=== PATIENT | female | born 1995 | race Caucasian/White ===

== ENCOUNTER → 2021-04-04 | Outpatient (CLI) | payer OTHER ==
[~2021-04-04] MED LIST: MOTRIN 800800 MG/TAB PO; PEPTO BISM262 MG/15 PO
== END ==
LOC: ZCOL.LAB 08:47
DX: Z20.822 Contact with and (suspected) exposure to COVID-19 (principal)

== ENCOUNTER 2021-04-07 07:03 | Inpatient (IN) | payer OTHER ==
[2021-04-07] VITALS (38 sets, daily range): BP systolic 114–143; BP diastolic 58–84; PULSE 65–111; TEMP 97.7–98.2
[~2021-04-07] VITALS: Ht 167.6 cm; Wt 97.7 kg
[~2021-04-07 07:03] MED LIST changes: -MOTRIN 800800 MG/TAB PO
--- NOTE | 2021-04-07 07:15 | NUR ---
Pt arrives on unit ambulatory with spouse. States possible SROM at 0400 with pink bloody show. Changed into a clean gown. EFM and toco applied. VSS. Denies regular ctx, and reports GFM. Admission assessment completed. SVE per this RN /-3. Amniotest positive. Dr. Deal notified. Orders for admission and to begin oxytocin infusion at 2mU/min increase q 20 minutes. IV started in LF. Labs drawn. LR infusing. Cat 1 FHR strip obtained. Consents signed. Pitocin infusion started per protocol. Bed locked in low position. Call light within reach. Oriented to room. POC discussed. No questions or concerns at this time.
[2021-04-07 08:36] LABS: BASO % 0.3 % (0.0-2.0); EOS # 0.3 (0.0-0.7); EOS % 2.8 % (0-4.0); GRAN # 6.7 (1.4-6.5); GRAN % 62.9 % (42.2-75.2); HEMATOCRIT 32.3 % (37.0-47.0); HEMOGLOBIN 10.7 g/dl (12.5-16.0); LYMPH # 2.4 (1.2-3.4); LYMPH % 22.8 % (20.0-51.0); MEAN CELL VOLUME 88 fl (80.0-100.0); MEAN CORPUSCULAR HEMOGLOBIN 29 pg (27.0-31.0); MEAN CORPUSCULAR HGB CONC 33 g/dl (33.0-37.0); MEAN PLATELET VOLUME 9.6 fl (7.4-10.4); MONO # 1.1 (0.1-0.6); MONO % 10.1 % (1.7-9.3); PLATELET COUNT 305 K/mm3 (130-400); RED BLOOD COUNT 3.68 M/mm3 (4.10-5.30); REDCELL DISTRIBUTION WIDTH-CV 13.2 % (11.5-14.5)
--- NOTE | 2021-04-07 10:45 | NUR ---
1042- Pt up on BB, EFM adjusted.
--- NOTE | 2021-04-07 11:49 | NUR ---
Pt sitting upright for epidural placement. Difficult tracing FHR due to maternal position. RN at bedside adjusting monitors. FHR audible.
--- NOTE | 2021-04-07 15:35 | NUR ---
SVE per this RN C/+1. 1540-Pt prepped for delivery. Coached on pushing efforts. Moves vertex well. 1543-Dr. Deal at bedside. Begins pushing with pt. 1601- of viable female infant attended by Dr. Deal. Cord clamped x 2 and cut from umbilical cord. dried and placed on mother's abdomen. Care of infant to Edwar Mendez RN. Apgars 8/9/9. 1603- of placenta. Pitocin bolus infusing per protocol. Fundus firm. Bleeding WNL. Laceration repaired per provider. Pericare performed. Ice pack applied. Bed locked in low position. Call light within reach. No questions or concerns at this time.
[2021-04-08 04:20] VITALS: BP 107/69; PULSE 84; TEMP 97.8
[2021-04-08 07:58] VITALS: BP 115/74; PULSE 82; TEMP 98.1
[2021-04-08] MEDS ORDERED: MOTRIN 800800 MG/TAB PO (08:35)
[2021-04-08 10:43] VITALS: BP 125/87; PULSE 105; TEMP 98.2
[2021-04-08 16:57] VITALS: BP 124/82; PULSE 94; TEMP 98.1
== END 2021-04-08 17:11 | disposition home or self-care (01) | DRG 807 ==
LOC: LDRO 07:03 → LDR 07:30 → OB 18:00
PROVIDERS: Obstetrics & Gynecology; ADMIT Obstetrics & Gynecology
PROC: 10E0XZZ Delivery of Products of Conception, External Approach (ICD-10-PCS; principal; 2021-04-07)
PROC: 0KQM0ZZ Repair Perineum Muscle, Open Approach (ICD-10-PCS; 2021-04-07)
PROC: 0UQMXZZ Repair Vulva, External Approach (ICD-10-PCS; 2021-04-07)
DX: O48.0 Post-term pregnancy (principal); Z37.0 Single live birth; O70.1 Second degree perineal laceration during delivery; Z3A.40 40 weeks gestation of pregnancy
CPT/HCPCS: J2590; J2795; J7120

== ENCOUNTER 2023-01-29 13:58 | Outpatient (CLI) | payer BC ==
[~2023-01-29] VITALS: Ht 170.2 cm; Wt 97.3 kg
[~2023-01-29 13:58] MED LIST changes: +MOTRIN 800800 MG/TAB PO
--- NOTE | 2023-01-29 14:05 | NUR ---
PATIENT AMBULATORY TO UNIT WITH SPOUSE. PATIENT ORIENTED TO LABOR ROOM 6 AND ASSISTED INTO A GOWN. EFM AND TOCO PLACED ON PATIENTS ABDOMEN AND TRACING WELL. PATIENT REPORTS POSSIBLE LEAKING OF FLUID AND CONTRACTIONS EVERY 10 MINUTES AT HOME, PATIENT ALSO REPORTS GOOD MOVEMENT AND NO VAGINAL BLEEDING. SVE AT THIS TIME BY RN /-1, AMNITRACE NEGATIVE WITH EXAM. PATIENT REPORTS THAT HER CONTRACTIONS ARE NOT VERY PAINFUL, BUT THEY LIVE AN HOUR AWAY AND THEY CAME TO MAKE SURE.
[2023-01-29] MEDS ORDERED: PRENATAL (14:24)
[2023-01-29 14:30] VITALS: BP 125/79; PULSE 105; TEMP 98.3
[2023-01-29 15:00] VITALS: BP 114/74; PULSE 92
== END 2023-01-29 15:38 | disposition home or self-care (01) ==
LOC: LDRO 13:58
DX: Z34.93 Encounter for supervision of normal pregnancy, unspecified, third trimester (principal); Z3A.36 36 weeks gestation of pregnancy